=== PATIENT | female | born 1960 | race Caucasian/White ===

== ENCOUNTER 2019-07-12 16:41 | Emergency (ER) | payer SELFPAY ==
[2019-07-12 16:48] VITALS: BP 173/70; PULSE 120; RESP 24; TEMP 37.4; O2SAT 98
--- NOTE | 2019-07-12 17:41 | ED.GENADULT ---
HPI - General Adult General Chief complaint: Ear Stated complaint: right ear swollen and red Time Seen by Provider: 07/12/19 17:42 Source: patient and RN notes reviewed Mode of arrival: ambulatory Limitations: no limitations History of Present Illness HPI narrative: 59-year-old female presents with complaints of redness, warmth, tenderness, and swelling to RT pinna for the past 14 days. Increase redness and warmth over the past 48 hours. Tylenol last today at 16:00 with some relief. Denies radiation of tenderness, redness, or swelling. No exacerbating factors. Denies open areas or drainage. Denies fever or chills. Denies diaherra, nausea, vomiting, and abdominal pain. Tolerating po intake well. Denies headaches, weakness, fatigue, myalgia, or facial swelling. Denies chest pain or dyspnea. Denies cough, rhinorrhea, congestion, sore throat. Denies recent traveling. Denies concern for COVID-19 or exposures been home since [id number] order except for essential household needs and return home. Some parts of this dictation were generated by voice recognition software and may contain typographical and/or grammatical inaccuracies. Related Data Allergies Allergy/AdvReac Type Severity Reaction Status Date / Time No Known Allergies Allergy Verified 07/12/19 16:54 Review of Systems Review of Systems: Narrative: CONSTITUTIONAL: Denies fever, chills, sweats. EYES: Denies visual changes, redness, discharge. ENT: Denies rhinorrhea, congestion, sore throat, otalgia. CARDIOVASCULAR: Denies chest pain, palpitations, edema. RESPIRATORY: Denies dyspnea, wheezing, cough. GASTROINTESTINAL: Denies abdominal pain, nausea, vomiting, diarrhea. GENITOURINARY: Denies dysuria, hematuria, abnormal discharge. SKIN: Complains of redness, swelling, warmth, and tenderness to RT pinna. MUSCULOSKELETAL: Denies acute back pain, joint pain, or myalgia. NEUROLOGIC: Denies numbness or focal weakness. PSYCHIATRIC: Denies anxiety or depression. All systems reviewed & are unremarkable except as noted in HPI and below. [facility] Past Medical History Medical History (Updated 07/13/19 @ 00:00 by Background Daemon) Anxiety COPD (chronic obstructive pulmonary disease) History of gastroesophageal reflux (GERD) Hypercholesteremia Menopause Surgical History Surgical History (Updated 07/12/19 @ 18:48 by CHAN Johansen) History of tonsillectomy Family History Family History (Updated 07/12/19 @ 18:51 by CHAN Johansen) Father Heart disease Mother Alive and well Grandparent Leukemia Grandparent Diabetes mellitus Social History Social History (Updated 07/12/19 @ 18:52 by CHAN Johansen) Smoking packs per day: 0.25 Smoking cigarettes per day: 5.0 Years smoked: 40 Smoking pack-years: 10.00 Smoking status: Current every day smoker Tobacco type: cigarettes Second hand tobacco smoke exposure: No Alcohol intake: current Substance use: never Living arrangements: with family Occupation/Education: occupation Gender identity (if verbalized by the patient): Female Comments At time of signature, agree with nurse past medical, surgical, social, and family history. There is no relevant family history pertinent to the presenting complaint. Exam Narrative: Exam Narrative: GENERAL: This is a well-nourished, well-developed patient, in no apparent distress. HEAD: normocephalic, atraumatic. EYES: PERRL. Sclera clear/white. Vision is grossly intact. EARS: Right pinna with mild-moderate erythema, swelling, tenderness, and warmth, no fluctuation. Auditory canals clear and without drainage. LT pinna normal. RT TM normal without perforation. LT TM with mild effusion no erythema or drainage. No tenderness with manipulation. Hearing grossly intact. NOSE: External nose normal with no obvious nasal discharge, nares without redness, no rhinorrhea. THROAT: Mucous membranes moist, post
[2019-07-12 18:12] VITALS: BP 168/100; PULSE 126
== END 2019-07-12 17:59 | disposition home or self-care (01) ==
PROVIDERS: Emergency Provider Nurse Practitioner Family
DX: H60.11 Cellulitis of right external ear (principal); F17.210 Nicotine dependence, cigarettes, uncomplicated
CPT/HCPCS: 99213; G0463